=== PATIENT | female | born 1965 | race Native Hawaiian/Other Pacific Islander ===

== ENCOUNTER 2018-03-24 23:35 | Outpatient (CLI) | payer OTHER | END 2018-03-24 23:39 | disposition short-term general hospital (02) | LOC: AMB 23:35 | DX: M54.89 Other dorsalgia (principal) | CPT/HCPCS: A0425; A0427 ==

== ENCOUNTER 2018-03-24 23:48 | Emergency (ER) | payer OTHER ==
[~2018-03-24] VITALS: Ht 162.6 cm; Wt 63.0 kg
[2018-03-25 00:10] LABS: PLATELET COUNT 238 K/uL (152-353)
[2018-03-25 00:19] LABS: POTASSIUM 3.6 mmol/L (3.6-5.2); SODIUM 139 mmol/L (136-145)
[2018-03-25 01:58] VITALS: BP 125/68; TEMP 97.3
== END 2018-03-25 02:12 | disposition home or self-care (01) ==
LOC: ED 23:48
PROVIDERS: Family Medicine
DX: J44.9 Chronic obstructive pulmonary disease, unspecified (principal); M51.36 Other intervertebral disc degeneration, lumbar region; M54.9 Dorsalgia, unspecified; I48.91 Unspecified atrial fibrillation
CPT/HCPCS: 80053; 81000; 82550; 84484; 85027; 93005; 96374; 99284; J1885; J2550